=== PATIENT | female | born 2005 | race Two or more races ===

== ENCOUNTER 2025-02-21 20:08 | Emergency (ER) | payer OTHER, MEDICAID ==
[~2025-02-21] VITALS: Ht 154.9 cm; Wt 62.7 kg
[2025-02-21 22:15] VITALS: BP 140/78; PULSE 90; RESP 18; TEMP 98.8; O2SAT 100
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
--- NOTE | 2025-02-22 00:16 | DVH ---
CT BRAIN WITHOUT CONTRAST HISTORY: head injury TECHNIQUE: Axial scans were obtained from the skull base through the vertex without contrast. Sagitta l and coronal reformats were generated. One or more of the following radiation dose reduction techniq ues were used for this examination: automated exposure control, adjustment of the mA and/or kV accord ing to patient size, use of iterative reconstruction technique. COMPARISON: None FINDINGS: Streak artifact somewhat limits evaluation, especially of the skull base and posterior fossa. As visualized, no definite acute intracranial hemorrhage or evidence of large vessel territorial infa rction is identified at this time. No midline shift. The basilar cisterns are patent. Qureshi-white di fferentiation appears relatively preserved. The visualized paranasal sinuses and mastoid air cells are clear. No grossly displaced calvarial frac ture is identified. Left parietal scalp contusion / swelling. IMPRESSION: No acute intracranial Findings as visualized. Left parietal scalp contusion / swelling. CT OF THE CERVICAL SPINE WITHOUT CONTRAST HISTORY: head injury COMPARISON: None TECHNIQUE: Thin section helical axial scans were obtained from the skull base to the upper thoracic s pine. Sagittal and coronal reformatted images were obtained. One or more of the following radiation d ose reduction techniques were used for this examination: automated exposure control, adjustment of th e mA and/or kV according to patient size, use of iterative reconstruction technique. FINDINGS: Straightening of the cervical curvature. Otherwise no grossly displaced fractures or subluxations elaine ntified. Vertebral body heights are maintained. The bony spinal canal is patent. Prevertebral soft tissues appear within normal limits. IMPRESSION: No displaced fractures or subluxations identified. Straightening of the cervical curvature may be in part related to patient positioning and/or muscular spasm.
== END 2025-02-22 00:25 | disposition home or self-care (01) ==
LOC: ER 20:08 → EDBD 20:08 → ER 02-22 00:25
DX: S16.1XXA Strain of muscle, fascia and tendon at neck level, initial encounter (principal); S00.03XA Contusion of scalp, initial encounter; S09.8XXA Other specified injuries of head, initial encounter; Z90.89 Acquired absence of other organs; V89.2XXA Person injured in unspecified motor-vehicle accident, traffic, initial encounter; Y93.89 Activity, other specified; Y92.410 Unspecified street and highway as the place of occurrence of the external cause; Y99.8 Other external cause status
CPT/HCPCS: 70450; 72125